=== PATIENT | female | born 1975 | race Caucasian/White ===

== ENCOUNTER 2020-12-14 11:02 | Outpatient (CLI) | payer OTHER ==
[2020-12-14] VITALS (21 sets, daily range): BP systolic 86–145; BP diastolic 53–106
[~2020-12-14 11:02] MED LIST: METO-292 PO
== END 2020-12-14 23:59 | disposition home or self-care (01) ==
LOC: CARD DIAG 11:02
PROVIDERS: ATTEND Internal Medicine Interventional Cardiology
DX: R42 Dizziness and giddiness (principal); R55 Syncope and collapse
CPT/HCPCS: 93660

== ENCOUNTER 2025-07-04 15:49 | Emergency (ER) | payer BC, OTHER ==
[~2025-07-04] VITALS: Ht 175.3 cm; Wt 62.9 kg
[2025-07-04 15:55] VITALS: BP 115/75; PULSE 65; TEMP 98.5; O2SAT 99
[2025-07-04 16:16] LABS: LEUKOCYTE ESTERASE ,URINE NEGATIVE (Neg); NITRITES, URINE NEGATIVE (Neg); OCCULT BLOOD,URINE NEGATIVE (Neg)
[2025-07-04 16:17] LABS: URINE HCG NEGATIVE (NEG)
[2025-07-04 16:23] LABS: UA COLLECTION TYPE CLN CATCH MIDSTREAM
[2025-07-04 16:45] LABS: CREATININE 0.91 MG/DL (0.40-0.90); TOTAL CARBON DIOXIDE 29.2 MMOL/L (24-32); eCRCL 73 ML/MIN; eGFR 65 ML/MIN
[2025-07-04 16:46] LABS: MEAN PLATELET VOLUME 8.5 FL (7.4-10.4); RED CELL DISTRIBUTION WIDTH 14.4 % (11.5-14.5)
[2025-07-04 16:50] VITALS: RESP 18
[2025-07-04] MEDS ORDERED: iohexol 300mg/ml 100ml inj. ONE (17:27)
--- NOTE | 2025-07-04 18:23 | RADIOLOGY REPORT ---
Indication: RLQ pain Technique: CT axial images of the abdomen and pelvis are obtained with intravenous contrast. Coronal and sagittal reformats were obtained. Radiation Dose Information: CTDI volume is 6.4 mGy. Dose-length product is 324 mGy*cm Comparison: None FINDINGS: Lung bases demonstrate no pleural effusion. Adrenal glands, spleen, pancreas unremarkable. No enhancing hepatic lesion. Gallbladder contracted. Kidneys demonstrate no hydronephrosis. Stomach is partially distended. Small bowel loops are normal in caliber. Colonic diverticular disease. Normal appendix. Moderate volume stool in the colon. Abdominal aorta normal in caliber. Bladder contracted. No free pelvic fluid. No inguinal lymphadenopathy. [id number] bilateral sacroiliac degenerative joint disease. [id number] thoracolumbar degenerative disc disease. IMPRESSION: Normal appendix. Colonic diverticula. Moderate volume stool within the colon. Other findings as described.
--- NOTE | 2025-07-04 18:25 | Physician Documentation ---
History of Present Illness Chief Complaint: Abdominal Pain Stated Complaint: ABDOMINAL PAIN Time Seen by MD: 16:45 Primary Medical Doctor: KAVIN Mode of Arrival: POV, Ambulatory HPI 49-year-old female who presents to the emergency department for evaluation of right lower quadrant pain for two days associated with mild rigors and loose stool. No recent hospitalizations, antibiotic therapy or prior history of the same. Last BM was 4 hours ago. Medication Reconciliation Allergies: Coded Allergies: No Known Allergies (Unverified , 09/24/14) Scheduled PRN Metoclopramide HCl (Reglan), 1 TABLET PO TID PRN for headache Past Medical History Past Medical History: No Pertinent History Other Past Surgical History: breast augmentation Alcohol Use: None Drug Use: none Lives with: Family Lives In: Home Occupation: employed Review of Systems All Other Systems at this time: Reviewed and Negative Constitutional: Reports: see HPI Gastrointestinal: Reports: abdominal pain, nausea; Denies: vomiting Physical Exam Vital Signs: RN Vital Signs have been reviewed: Yes, Temperature: 98.5, Source: Temporal, Heart Rate: 65, Respiratory Rate: 18, BP: 115/75, Pulse Oximetry: 99, Weight: 62.900 Oxygen Flow Rate: 0 General Appearance: alert, WD/WN, mild distress EENT: PERRL/EOMI Neck: normal inspection Respiratory: no respiratory distress Chest: no accessory muscle use Cardiovascular: normal peripheral pulses Gastrointestinal: tenderness, rebound; No: liver enlargement, spleen enlargement, mass, pulsatile mass, rigidity Gastrointestinal Mild McBurney's point tenderness Back: normal inspection Neurologic: oriented x4, 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 (Omnipaque-3 (07/04/25 17:27) Vital Signs 07/04/25 07/04/25 15:55 16:50 Temp 98.5 Pulse 65 Resp 18 18 B/P (MAP) 115/75 Pulse Ox 99 O2 Flow Rate 0 Laboratory Tests Test 07/04/25 16:00 07/04/25 16:18 Urine Specimen Description Cln catch midstream Urine Color Yellow Urine Clarity Clear Urine pH 6.0 Urine Specific [place] <=1.005 Urine Protein Negative Urine Glucose (UA) Negative Urine Ketones Negative Urine Occult Blood Negative Urine Nitrite Negative Urine Bilirubin Negative Urine Urobilinogen 0.2 Urine Leukocyte Esterase Negative Urine Culture Indicated Not ind Volume Urine Centrifuged 10 ml Urine HCG, Qualitative Negative Urine Comment White Blood Count 4.9 Red Blood Count 4.42 Hemoglobin 13.0 Hematocrit 38.0 Mean Corpuscular Volume 86.0 Mean Corpuscular Hemoglobin 29.3 Mean Corpuscular Hemoglobin Concent 34.1 Red Cell Distribution Width 14.4 Platelet Count 234 Mean Platelet Volume 8.5 Neutrophils (%) (Auto) 48.0 Lymphocytes (%) (Auto) 41.6 Monocytes (%) (Auto) 8.7 Eosinophils (%) (Auto) 1.3 Basophils (%) (Auto) 0.4 Neutrophils # (Auto) 2.4 Lymphocytes # (Auto) 2.1 Monocytes # (Auto) 0.4 Eosinophils # (Auto) 0.1 Basophils # (Auto) 0.0 CBC Comment Sodium Level 140 Potassium Level 4.0 Chloride Level 107 Carbon Dioxide Level 29.2 Anion Gap 4 L Blood Urea Nitrogen 14 Creatinine 0.91 H Estimated GFR/1.73 m2 65 BUN/Creatinine Ratio 15.4 Glucose Level 87 Calcium Level 8.5 Total Bilirubin 0.3 Aspartate Amino Transf (AST/SGOT) 20 Alanine Aminotransferase (ALT/SGPT) 35 Alkaline Phosphatase 68 Total Protein 7.0 Albumin 3.7 Globulin 3.3 Albumin/Globulin Ratio 1.1 Lipase 71 Chemistry Comments Medical Decision Making Additional information obtaine: N/A Findings 49-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 No leukocytosis noted and she requiring no pain management presently. Urinalysis is unremarkable. Patient awaits results of CT imaging. CT imaging reassuring for no intra-abdominal or pelvic surgical pathologies. Moderate stool noted in the colon along with diverticulum without diverticulit is. This reassurance provided in the patient. Safely discharged in the emergency department and follow up with the primary care physician. Differential Dx:Considerations: Appendicitis, Diverticular disease, Gastroenteritis, Ischemic bowel, Urolithiasis Departure Disposition: HOME / SELF CARE / HOMELESS Impression: Primary Impression: Abdominal pain Qualified Codes: R10.31 - Right lower quadrant pain Additional Impressions: Colonic diverticular disease Constipation Condition: Stable Discharge Instructions: Abdominal Pain, Women Additional Instructions: Today in the emergency department you had labs obtained which were all reassuring and your CT imaging is negative for appendicitis or other obvious intra-abdominal or pelvic pathologies. Please make follow up appointment with your primary care physician return to the emergency department [facility] if symptoms worsen. Referrals: NO PRIMARY CARE PROVIDER (PCP) Education Educated: Patient Educated regarding: diagnosis, treatment, prognosis, need for follow up Signature Scribe Signature: . Attestation: . AMY MEANS PAC Jul 04, 2025 18:25
== END 2025-07-04 18:52 | disposition home or self-care (01) ==
LOC: ER 15:49
DX: K57.30 Diverticulosis of large intestine without perforation or abscess without bleeding (principal); K59.00 Constipation, unspecified
CPT/HCPCS: 36415; 74177; 80053; 81003; 81025; 83690; 85025; 99285; Q9967